=== PATIENT | female | born 1975 | race Caucasian/White ===

== ENCOUNTER → 2017-11-14 | Outpatient (CLI) | payer OTHER ==
[2017-11-14 08:42] LABS: HEMATOCRIT 40.8 % (36.0-47.0); HEMOGLOBIN 13.6 g/dl (12.0-15.5); MEAN CORPUSCULAR HEMOGLOBIN 29.8 pg (27.0-33.0); MEAN CORPUSCULAR HGB CONC 33.3 g/dl (32.0-36.5); MEAN CORPUSCULAR VOLUME 89.5 fl (80.0-96.0); PLATELET COUNT, AUTOMATED 236 10^3/uL (150-450); RED BLOOD COUNT 4.56 10^6/uL (4.00-5.40); RED CELL DISTRIBUTION WIDTH 12.9 % (11.5-14.5); WHITE BLOOD COUNT 6.7 10^3/uL (4.0-10.0)
[2017-11-14 09:22] LABS: ALBUMIN 4.2 GM/DL (3.2-5.2); ALBUMIN/GLOBULIN RATIO 1.17 (1.00-1.93); ALKALINE PHOSPHATASE 75 U/L (45-117); ALT/SGPT 20 U/L (12-78); ANION GAP 8 MEQ/L (8-16); AST/SGOT 16 U/L (7-37); BILIRUBIN,TOTAL 0.4 MG/DL (0.2-1.0); BLOOD UREA NITROGEN 14 MG/DL (7-18); CALCIUM LEVEL 9.4 MG/DL (8.5-10.1); CARBON DIOXIDE LEVEL 27 MEQ/L (21-32); CHLORIDE LEVEL 106 MEQ/L (98-107); CHOLESTEROL LEVEL 164 MG/DL (<200); CHOLESTEROL RISK RATIO 4.432 (<5); CREATININE FOR GFR 0.99 MG/DL (0.55-1.30); GLOMERULAR FILTRATION RATE > 60.0 (>58); GLUCOSE, FASTING 84 MG/DL (70-100); HDL CHOLESTEROL 37 MG/DL (>40); LDL CHOLESTEROL 110 MG/DL (<100); NON-HDL-C 127 MG/DL; POTASSIUM SERUM 4.1 MEQ/L (3.5-5.1); SODIUM LEVEL 141 MEQ/L (136-145); TOTAL PROTEIN 7.8 GM/DL (6.4-8.2); TRIGLYCERIDES LEVEL 87 MG/DL (<150)
== END ==
LOC: M RAD 07:17
DX: E04.2 Nontoxic multinodular goiter (principal)
CPT/HCPCS: 76536

== ENCOUNTER → 2017-11-15 | Outpatient (CLI) | payer OTHER | LOC: M RAD 14:47 | DX: G44.89 Other headache syndrome (principal) | CPT/HCPCS: 70551 ==

== ENCOUNTER → 2018-05-22 | Outpatient (CLI) | payer OTHER ==
--- NOTE | 2018-05-22 11:41 | REP ---
THYROID ULTRASOUND: Real-time sonographic evaluation of the thyroid performed and compared to prior study of 11/14/2017. Right lobe measures 4.2 x 2.0 x 1.7 cm and left lobe 4.8 x 1.5 x 1.5 cm. There is a nodule again seen on the right 7 x 4 x 5 mm in the mid aspect, a nodule is again see on the left in the mid aspect 7 x 5 x 5 mm. These are unchanged. There is 5 mm cyst also seen in the right lobe mid to lower aspect and a 4 mm cyst in the left mid to upper aspect. IMPRESSION: Stable subcentimeter nodule in the right lobe as well as in the left lobe. Recommend followup ultrasound in 6-12 months. Electronically Signed by Chirag Wade MD 05/22/2018 04:59 P
== END ==
LOC: M RAD 09:31
PROVIDERS: ATTEND Family Medicine
DX: E04.2 Nontoxic multinodular goiter (principal)

== ENCOUNTER → 2018-11-27 | Outpatient (CLI) | payer OTHER ==
--- NOTE | 2018-11-27 10:11 | REP ---
Thyroid sonography: History: Thyroid nodules. Thyroid cyst. Comparison thyroid sonography May 22, 2018. Sonographic findings: Thyroid isthmus is 0.3 cm thick. Right lobe dimensions by ultrasound today are 4.4 x 1.5 x 1.5 cm. The left lobe measures 4.9 x 1.6 x 1.2 cm. These measurements are essentially unchanged. There are multiple bilateral small sub-centimeter nodules and cysts in the thyroid. In the right lobe there is a hypoechoic nodule measuring 0.6 cm in greatest diameter. This is unchanged. In the right lobe there is a 0.4 cm nodule and several cysts. In the left lobe, there is a 0.7 cm hypoechoic nodule which is felt to be unchanged. There are several tiny cysts in the left lobe. Impression: Multiple small benign appearing subcentimeter nodules and cysts. No change from May 22, 2018. No sonographically suspicious features. Electronically Signed by Sonny Harrison MD 11/27/2018 07:36 P
== END ==
LOC: M RAD 08:21
PROVIDERS: ATTEND Family Medicine
DX: E07.9 Disorder of thyroid, unspecified (principal)